=== PATIENT | male | born 1985 | race African-American/Black ===

== ENCOUNTER 2025-01-16 09:46 | Emergency (ER) | payer MEDICAID ==
[~2025-01-16] VITALS: Ht 172.7 cm; Wt 88.0 kg
[2025-01-16 09:52] VITALS: O2SAT 99
[2025-01-16] MEDS: KETOROLAC 15MG/ML VIAL IV ONE (10:41)
[2025-01-16 10:57] LABS: HEMATOCRIT. 45.9 % (42.0-52.0); HEMOGLOBIN. 15.8 g/dL (14.0-18.0); MEAN PLATELET VOLUME 9.9 fl (7.4-10.4); PLATELET 177 x1000/uL (130-400); RED BLOOD CELL COUNT 4.89 mill/uL (4.7-6.1); RED CELL DISTRIBUTION WIDTH 14.8 % (11.6-14.6)
[2025-01-16 11:07] LABS: TROPONIN I HIGH SENSITIVITY < 4 ng/L (3.0-53)
[2025-01-16 11:08] LABS: CREATININE 0.9 mg/dL (0.6-1.3)
[2025-01-16 11:09] LABS: UREA NITROGEN BLOOD 7 mg/dL (9-23)
[2025-01-16 11:45] LABS: BAND% 2.0 % (1.0-6.0); EOSINOPHILS % MANUAL 1.0 % (0.0-5.0); LYMPHOCYTES % MANUAL 34.0 % (20.0-50.0); MONOCYTES % MANUAL 21.0 % (2.0-8.0); NEUTROPHILS % MANUAL 42.0 % (45.0-75.0); PLATELET ESTIMATE NORMAL
[2025-01-16 12:20] VITALS: BP 125/85; PULSE 70; RESP 12; TEMP 37.2; O2SAT 99
== END 2025-01-16 12:38 | disposition home or self-care (01) ==
LOC: ER 09:46
DX: R07.89 Other chest pain (principal)
CPT/HCPCS: 99285; 96374; 71045; 80048; 85025; 84484; 36415; 93005; J1885